=== PATIENT | female | born 1990 | race American Indian/Alaskan Native ===

== ENCOUNTER 2018-09-29 09:39 | Emergency (ER) | payer BC ==
[2018-09-29] MEDS ORDERED: ZOFRAN ODT PO ONE (10:15)
[2018-09-29] MEDS ORDERED: CATAPRES PO ONE (10:15)
[2018-09-29] MEDS ORDERED: ATIVAN PO ONE (10:22)
--- NOTE | 2018-09-29 10:22 | Emergency Department Report ---
ED General Adult HPI - General Chief complaint: Abdominal Pain Stated complaint: NAUSEA/VOMITING/DIZZY Time Seen by Provider: 09/29/18 10:11 Source: patient Mode of arrival: Ambulatory Limitations: No Limitations - History of Present Illness Initial comments: This is a 28-year-old man who checked into the [facility] on Sunday. He states that he will be in an opioid detox program. However, he states there is no doctor available until Sunday. Yesterday he developed signs of withdrawal and states he is "detoxing". Symptoms include abdominal cramping, nausea, shaking/tremulousness. He states he has been through this before. He has been procuring his Percocet on the street. He is cooperative. He expresses no suicidal ideation. He said no fever or chills. -: Gradual, hour(s) Location: abdomen Quality: other (cramping) Consistency: intermittent Improves with: none Worsens with: none Associated Symptoms: nausea/vomiting (no vomiting) Treatments Prior to Arrival: none - Related Data Allergies Allergy/AdvReac Type Severity Reaction Status Date / Time No Known Allergies Allergy Unverified 09/29/18 09:45 ED Review of Systems ROS: Stated complaint: NAUSEA/VOMITING/DIZZY Other details as noted in HPI Constitutional: denies: chills, fever Eyes: denies: eye pain, eye discharge, vision change ENT: denies: ear pain, throat pain Respiratory: denies: cough, shortness of breath, wheezing Cardiovascular: denies: chest pain, palpitations Endocrine: no symptoms reported Gastrointestinal: abdominal pain, nausea. denies: diarrhea Genitourinary: denies: urgency, dysuria Musculoskeletal: denies: back pain, joint swelling, arthralgia Skin: denies: rash, lesions Neurological: denies: headache, weakness, paresthesias Psychiatric: anxiety. denies: depression Hematological/Lymphatic: denies: easy bleeding, easy bruising ED Past Medical Hx - Past Medical History Additional medical history: Opioid dependency - Social History Smoking Status: Never Smoker Substance Use Type: None ED Physical Exam - General Limitations: No Limitations General appearance: alert, in no apparent distress - Head Head exam: Present: atraumatic, normocephalic - Eye Eye exam: Present: normal appearance. Absent: scleral icterus - ENT ENT exam: Present: mucous membranes moist - Neck Neck exam: Present: normal inspection - Respiratory Respiratory exam: Present: normal lung sounds bilaterally. Absent: respiratory distress - Cardiovascular Cardiovascular Exam: Present: regular rate, normal rhythm. Absent: systolic murmur, diastolic murmur, rubs, gallop - GI/Abdominal GI/Abdominal exam: Present: soft, normal bowel sounds. Absent: distended, tenderness, guarding, rebound, rigid - Rectal Rectal exam: Present: deferred - Extremities Exam Extremities exam: Present: normal inspection - Back Exam Back exam: Present: normal inspection - Neurological Exam Neurological exam: Present: alert, oriented X3, CN II-XII intact, other (a bit tremulous). Absent: motor sensory deficit - Psychiatric Psychiatric exam: Present: normal affect, normal mood - Skin Skin exam: Present: warm, dry, intact, normal color. Absent: rash ED Course Vital Signs 09/29/18 09/29/18 09/29/18 09:50 10:10 10:45 Temperature 97.9 F 98.1 F Pulse Rate 64 77 77 Respiratory 16 12 Rate Blood Pressure 133/78 110/68 110/68 O2 Sat by Pulse 98 98 Oximetry - Reevaluation(s) Reevaluation #1: I had the mental health counselor contact the [facility]. They stated that the patient is not currently enrolled 09/29/18 10:49 Reevaluation #2: Tremulousness has resolved. Patient resting comfortably. 09/29/18 11:19 ED Medical Decision Making - Lab Data Result diagrams: 09/29/18 10:05 09/29/18 10:05 Laboratory Results - last 24 hr 09/29/18 09/29/18 10:05 10:05 WBC 6.3 RBC 5.15 H Hgb 14.6 Hct 43.9 MCV 85 MCH 28 MCHC 33 RDW 14.1 Plt Count 422 Lymph % (Auto) 32.7 Coleman % (Auto) 9.4 H Eos % (Auto) 3.0 Baso % (Auto) 1.0 Lymph # 2.1 Coleman # 0.6 Eos # 0.2 Baso # 0.1 Seg Neutrophils % 53.9 Seg Neutrophils # 3.4 Sodium 140 Potassium 4.7 Chloride 100.7 Carbon Dioxide 28 Anion Gap 16 BUN 10 Creatinine 1.0 Estimated GFR > 60 BUN/Creatinine Ratio 10 Glucose 97 Calcium 10.4 H Amylase 74 Lipase 22 Laboratory Results - last 24 hr 09/29/18 09/29/18 09/29/18 10:05 10:05 10:25 WBC 6.3 RBC 5.15 H Hgb 14.6 Hct 43.9 MCV 85 MCH 28 MCHC 33 RDW 14.1 Plt Count 422 Lymph % (Auto) 32.7 Coleman % (Auto) 9.4 H Eos % (Auto) 3.0 Baso % (Auto) 1.0 Lymph # 2.1 Coleman # 0.6 Eos # 0.2 Baso # 0.1 Seg Neutrophils % 53.9 Seg Neutrophils # 3.4 Sodium 140 Potassium 4.7 Chloride 100.7 Carbon Dioxide 28 Anion Gap 16 BUN 10 Creatinine 1.0 Estimated GFR > 60 BUN/Creatinine Ratio 10 Glucose 97 Calcium 10.4 H Total Bilirubin 0.80 Direct Bilirubin < 0.2 Indirect Bilirubin 0.6 AST 18 ALT 26 Alkaline Phosphatase 54 Total Protein 7.3 Albumin 4.7 Albumin/Globulin Ratio 1.8 Amylase 74 Lipase 22 Critical care attestation.: If time is entered above; I have spent that time in minutes in the direct care of this critically ill patient, excluding procedure time. ED Disposition Clinical Impression: Opioid withdrawal Disposition: DC-01 TO HOME OR SELFCARE Is pt being admited?: No Does the pt Need Aspirin: No Condition: Stable Instructions: Opioid Withdrawal (ED) Referrals: [facility] [Provider Group] - 3-5 Days [facility] [Outside] - 24 Hours Time of Disposition: 11:20
[2018-09-29 10:40] LABS: Basophils # (Auto) 0.1 K/mm3 (0.0-0.1); Eosinophils # (Auto) 0.2 K/mm3 (0.0-0.4); Hematocrit 43.9 % (35.5-45.6); Hemoglobin 14.6 gm/dl (11.8-15.2); Lymphocytes # (Auto) 2.1 K/mm3 (1.2-5.4); Lymphocytes % (Auto) 32.7 % (13.4-35.0); Mean Corpuscular HGB Conc 33 % (32-34); Mean Corpuscular Hemoglobin 28 pg (28-32); Mean Corpuscular Volume 85 fl (84-94); Monocytes # (Auto) 0.6 K/mm3 (0.0-0.8); Monocytes % (Auto) 9.4 % (0.0-7.3); Platelet Count 422 K/mm3 (140-440); Red Blood Count 5.15 M/mm3 (3.65-5.03); Red Cell Distribution Width 14.1 % (13.2-15.2)
[2018-09-29 10:49] LABS: BUN/Creatinine Ratio 10; Blood Urea Nitrogen 10 mg/dL (9-20); Calcium 10.4 mg/dL (8.4-10.2); Hemolysis Index 5; Lipase 22 units/L (13-60)
[2018-09-29 11:01] LABS: Alanine Aminotransferase 26 units/L (7-56); Albumin 4.7 g/dL (3.9-5)
[2018-09-29 11:14] LABS: Bilirubin,Direct < 0.2 mg/dL (0-0.2)
[2018-09-29 11:31] VITALS: BP 112/72
== END 2018-09-29 11:30 | disposition home or self-care (01) ==
LOC: ED 09:39 → EDSEX 09:39 → ED 11:30
DX: F11.23 Opioid dependence with withdrawal (principal); R10.9 Unspecified abdominal pain; R11.0 Nausea
CPT/HCPCS: 36415; 80048; 80076; 82150; 83690; 85025; Q0162